=== PATIENT | female | born 1940 | race Caucasian/White ===

== ENCOUNTER 2020-07-31 10:16 | Emergency (ER) | payer MEDICAID, MEDICARE, OTHER ==
[2020-07-31] MEDS ORDERED: Aspirin 81 MG Tab.Chew PO ONE (10:19)
--- NOTE | 2020-07-31 10:22 | EDM.PDOC ---
ED HPI GENERAL MEDICAL PROBLEM - General Chief Complaint: Cardiovascular Problem Stated Complaint: MEDICAL POSS. CARDIO Time Seen by Provider: 07/31/20 10:20 Source of Information: Reports: Patient, EMS, RN Notes Reviewed History Limitations: Reports: Physical Impairment - History of Present Illness INITIAL COMMENTS - FREE TEXT/NARRATIVE: 80-year-old female presents emergency department today complaint of unresponsive event. 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 Per report from EMS staff is that care staff found her slumped over at the breakfast table she was brought to the ground was found to be unresponsive at that time they were concerned about cardiac arrest EMS services were called EMS services elected to transport to [place] for further evaluation. At this time she states she is pain-free she is not sure why she is here she is pleasant and cooperative but orientated only to name - Related Data Allergies Allergy/AdvReac Type Severity Reaction Status Date / Time No Known Allergies Allergy Verified 07/31/20 10:22 Home Meds: Home Meds Acetaminophen 1,000 mg PO TID 07/31/20 [History] Alum Hydroxide/Mag Hydroxide [Mag-Al] 10 ml PO Q4H PRN 07/31/20 [History] Aspirin 1 tab PO Q4H PRN 07/31/20 [History] Docusate Sodium [Colace] 100 mg PO DAILY 07/31/20 [History] Hydrocodone/Acetaminophen [Hydrocodon-Acetaminophen 5-325] 1 tab PO Q8HR PRN 07/31/20 [History] LORazepam [Ativan] 1 mg PO Q6H PRN 07/31/20 [History] Neomycin [place]/Bacitrac Zn/Poly [Neosporin Antibiotic] 1 applic TP ASDIRECTED 07/31/20 [History] Vits A and D/White Pet/Lanolin [A and D Ointment] 1 gm TOP Q2H 07/31/20 [History] ED ROS GENERAL - Review of Systems Review Of Systems: Unable To Obtain Reason Not Obtained: Dementia ED EXAM, GENERAL - Physical Exam Exam: See Below Exam Limited By: No Limitations General Appearance: Alert, No Apparent Distress Respiratory/Chest: No Respiratory Distress, Lungs Clear, Normal Breath Sounds, No Accessory Muscle Use, Chest Non-Tender Cardiovascular: Regular Rate, Rhythm, No Murmur GI/Abdominal: Soft, Non-Tender #1 Interpretation EKG Date: 07/31/20 Time: 10: Rhythm: NSR Mereta: Normal P-Wave: Present QRS: RBBB ST-T: Normal QT: Normal Comparison: NA - No Prior EKG Course - Vital Signs Last Recorded V/S: Last Vital Signs Temp 97.4 F 07/31/20 10:19 Pulse 86 07/31/20 10:19 Resp 15 07/31/20 10:19 BP 132/70 07/31/20 10:19 Pulse Ox 97 07/31/20 10:19 - Orders/Labs/Meds Orders: Active Orders 24 hr Category Date Time Status Cardiac Monitoring [RC] .As Directed Care 07/31/20 10:19 Active EKG Documentation Completion [RC] ASDIRECTED Care 07/31/20 10:19 Active EKG 12 Lead [EK] Stat Ther 07/31/20 10:19 Ordered Labs: Laboratory Tests 07/31/20 07/31/20 Range/Units 10:44 10:44 WBC 10.1 (4.5-11.0) K/uL RBC 4.43 (3.30-5.50) M/uL Hgb 12.3 (12.0-15.0) g/dL Hct 39.6 (36.0-48.0) % MCV 89 (80-98) fL MCH 28 (27-31) pg MCHC 31 L (32-36) % Plt Count 325 (150-400) K/uL Neut % (Auto) 83 H (36-66) % Lymph % (Auto) 7 L (24-44) % [place] % (Auto) 9 H (2-6) % Eos % (Auto) 1 L (2-4) % Baso % (Auto) 0 (0-1) % Sodium 140 (140-148) mmol/L Potassium 4.3 (3.6-5.2) mmol/L Chloride 101 (100-108) mmol/L Carbon Dioxide 29 (21-32) mmol/L Anion Gap 10.2 (5.0-14.0) mmol/L BUN 13 (7-18) mg/dL Creatinine 1.1 H (0.6-1.0) mg/dL Est Cr Clr Drug Dosing 28.32 mL/min Estimated GFR (MDRD) 48 L (>60) Glucose 141 H (74-106) mg/dL Calcium 10.0 (8.5-10.1) mg/dL Total Bilirubin 0.3 (0.2-1.0) mg/dL AST 18 (15-37) U/L ALT 16 (12-78) U/L Alkaline Phosphatase 115 (46-116) U/L Troponin I < 0.017 (0.000-0.056) ng/mL Total Protein 6.8 (6.4-8.2) g/dL Albumin 3.2 L (3.4-5.0) g/dL Globulin 3.6 H (2.3-3.5) g/dL Albumin/Globulin Ratio 0.9 L (1.2-2.2) Meds: Medications Discontinued Medications Generic Name Dose Route Start Last Admin Trade Name Freq PRN Reason Stop Dose Admin Aspirin 324 mg 07/31/20 10:19 07/31/20 11:06 Aspirin 81 Mg Tab.Chew PO 07/31/20 10:20 324 mg ONETIME ONE Administration Departure - Departure Time of Disposition: 11:43 Disposition: Home, Self-Care 01 Condition: Fair Clinical Impression: Syncope Qualifiers: Syncope type: unspecified Qualified Code(s): R55 - Syncope and collapse Instructions: Syncope, [id number] Referrals: PCP,None [Primary Care Provider] - Forms: ED Department Discharge Additional Instructions: Follow-up with your primary care as needed call return to the emergency department worsening of symptoms Sepsis Event Note (ED) - Focused Exam Vital Signs: Vital Signs Temp Pulse Resp BP Pulse Ox 07/31/20 10:19 97.4 F 86 15 132/70 97 - My Orders Last 24 Hours: My Active Orders 07/31/20 10:19 Cardiac Monitoring [RC] .As Directed EKG Documentation Completion [RC] ASDIRECTED EKG 12 Lead [EK] Stat - Assessment/Plan Last 24 Hours: My Active Orders 07/31/20 10:19 Cardiac Monitoring [RC] .As Directed EKG Documentation Completion [RC] ASDIRECTED EKG 12 Lead [EK] Stat Plan: Assessment Acuity = acute Site and laterality = syncopal event Etiology = unknown Manifestations = none Location of injury = Home Lab values = CBC unremarkable creatinine elevated 1.1 consistent chronic renal failure stage G3 a troponin is negative EKG shows no ST elevations or depressions Plan She remained asymptomatic in the emergency department never complained of any chest pain does have a history of syncopal events recommend follow-up with primary care as needed This note was dictated using [employer] voice recognition software please call with any questions on syntax or grammar.
--- NOTE | 2020-07-31 11:03 | CR ---
CHEST: Portable 07/31/2020 10:46 AM CLINICAL HISTORY:Chest pain COMPARISON:None FINDINGS: The heart size, pulmonary vascularity and hilar structures are normal. No infiltrate effusion or pneumothorax is seen. There is some mild generalized interstitial prominence which is likely chronic. There are atherosclerotic changes in the aorta. IMPRESSION: No acute cardiopulmonary process. Generalized interstitial prominence is likely chronic.
== END 2020-07-31 13:22 | disposition home or self-care (01) ==
LOC: JP.ED 10:16
DX: R55 Syncope and collapse (principal); F03.90 Unspecified dementia, unspecified severity, without behavioral disturbance, psychotic disturbance, mood disturbance, and anxiety; Z79.82 Long term (current) use of aspirin
CPT/HCPCS: 36415; 71045; 71045-26; 80053; 84484; 85025; 93005; 99283; 99284-25; A9270-GY